=== PATIENT | female | born 1995 | race Hispanic/Latino ===

== ENCOUNTER 2017-02-24 12:50 | Emergency (ER) | payer OTHER ==
[~2017-02-24] VITALS: Ht 157.5 cm; Wt 59.1 kg
[2017-02-24 13:05] VITALS: BP 99/58; RESP 16; O2SAT 100
--- NOTE | 2017-02-24 13:39 | ED.REPORT ---
HPI-Trauma Minor / Fall Date of Service February 24, 2017 ED Provider: Alonzo Travis PA-C Tiffany is an otherwise healthy 21-year-old female sitting with a chief complaint of nose pain. She states that she struck her nose against a metal bar last night at work. It bled for about 5 minutes. Today she complains of pain in her nose as well as reduced airflow on the right side. Nursing Notes Stated Complaint: HIT NOSE ON METAL POLE AT WORK BLEEDING Chief Complaint: ENT & Mouth Nursing Notes Reviewed: Yes Allergies: Coded Allergies: No Known Allergies (Unverified , 02/24/17) General Time Seen by MD: 13:20 Chief Complaint Face injury Past Medical History Past Medical History Denies Review of Systems Review of Systems Note: Negative unless stated otherwise in history of present illness Physical Exam General: Well appearing, well developed, well nourished, no acute distress. Head: Atraumatic, normocephalic. No mastoid tenderness. Eyes: No scleral icterus or injection. No discharge. PERRL. EOMI Vision grossly intact. Ears: Hearing grossly intact. Nose: Symmetrical, without discharge. Clot noted at right turbinate. Clears with blowing, and the naris is patent, as is the left. Small abrasion on midline bridge of nose with associated mild tenderness. No bruising, septal hematoma. No frontal or maxillary sinus tenderness. Mouth/pharynx: normal dentition, mucus membranes moist. Tonsils 2+ and symmetrical, uvula midline. Pharynx noninjected, no blood, cobblestoning or discharge. Voice clear. Neck: No tenderness or lymphadenopathy. Trachea midline. Respiratory: No respiratory distress, no increased work of breathing. Speaks in complete sentences. Skin: Warm and dry. Neurological: Grossly nonfocal. Psychological: alert and oriented. Speech appropriate, linear and logical. Behavior appropriate. Initial Vital Signs Vital Signs (First) Date Time Temp Pulse Resp B/P Pulse Ox O2 Delivery O2 Flow Rate FiO2 02/24/17 13:05 36.8 64 16 99/58 100 Room Air Initial VS: Vital signs normal Re-Eval/Medical Decision Med Decision/Clinical Course Otherwise healthy 89-year-old female struck her nose against a metal bar while at work last night. Complains of nose pain, reduced airflow on right side. Physical examination is benign, with clot noted in right naris. This clears with blowing and the nurse becomes patent. Negative Septal hematoma, no bleeding in posterior oropharynx. I discussed this with Dr. Moreira who met with and examined the patient. We do not feel that x-rays are necessary as nose is symmetrical, patent making a clinically significant fracture unlikely. I discussed this with the patient who agrees. I believe this mechanism is highly unlikely to cause intracranial or cervical injury. The patient is stable and safe for discharge. Advise [id number] analgesia, primary care follow- up, emergency return precautions. Patient verbalizes understanding of and content with plan Discharge & Departure Impression: Primary Impression: Nasal contusion Disposition: Home Discharge Condition All VS Reviewed: Yes Condition: Stable Additional Instructions: Evaluation in the emergency department for a nose injury includes history and physical examination, both of which are reassuring that you have not suffered a serious nose injury. The nose is well aligned and you cannot breathe well on both sides. We do not believe that x-rays are indicated at this time. I believe you are stable and safe to be discharged home. Apply ice to the area 2 or 3 times over the next day or so. The pain is best treated with 400 mg of ibuprofen (Advil, Motrin) every 6 hours, or 1000 mg of acetaminophen (Tylenol) every 6 hours. These drugs can be taken at the same time for more severe pain. Follow-up with her primary care provider if any further concerns. Return to the emergency department for any new or worsening symptoms including new bleeding that does not stop in 10-15 minutes. Referrals: [facility] EDSupervising Provider for APC: Demetrius Toney DO Attending Statement I have seen and examined the patient. I have reviewed the chart and agree with the documentation as recorded by the Midlevel Provider, including assessment, treatment plan, and disposition. Findings from my exam are included in documentation above. copies to: [facility] Alonzo Travis PA-C February 24, 2017 13:39 Demetrius Toney DO February 24, 2017 13:52
== END 2017-02-24 13:45 | disposition home or self-care (01) ==
LOC: SED 12:50
DX: S00.33XA Contusion of nose, initial encounter (principal); W22.8XXA Striking against or struck by other objects, initial encounter; Y92.59 Other trade areas as the place of occurrence of the external cause; Y93.89 Activity, other specified; Y99.0 Civilian activity done for income or pay